=== PATIENT | male | born 1950 ===

== ENCOUNTER → 2021-11-27 | Day surgery (SDC) | payer OTHER, MEDICARE ==
[~2021-11-27] VITALS: Ht 170.2 cm; Wt 81.6 kg
[~2021-11-27] MED LIST: LIPITOR 10MG TA10 MG PO; PERCOCET 5-3251 EACH PO; PRINIVIL20 MG PO
== END | disposition home or self-care (01) ==
LOC: FAS 06:55
DX: C44.41 Basal cell carcinoma of skin of scalp and neck (principal); R22.1 Localized swelling, mass and lump, neck; I10 Essential (primary) hypertension; E78.5 Hyperlipidemia, unspecified; Z79.899 Other long term (current) drug therapy
CPT/HCPCS: J2704; J3010; J7120